=== PATIENT | male | born 1960 | race Two or more races ===

== ENCOUNTER → 2025-10-17 | Emergency (ER) | payer BC ==
[~2025-10-17] VITALS: Ht 177.8 cm; Wt 79.4 kg
[~2025-10-17] MED LIST: TAMS0.4C PO; VRAYLAR3 MG PO; VYVANSE50 M1 PO
== END | disposition left against medical advice (07) ==
LOC: ER 12:26
DX: Z53.21 Procedure and treatment not carried out due to patient leaving prior to being seen by health care provider (principal)